=== PATIENT | female | born 1945 | race Caucasian/White ===

== ENCOUNTER → 2018-04-30 | Outpatient (CLI) | payer MEDICARE ==
[~2018-04-30] MED LIST: ATOR80 PO; Allegra-D 12 H1 EACH PO; Aspirin EC81 MG PO; CARV25 PO; CLOP75 PO; FLONASE ALLERG9.9 ML INH; LISI20 PO; PANT40 PO
[2018-05-01 09:34] LABS: Candida species (DNA Probe) Negative (NEGATIVE); G. vaginalis (DNA Probe) Positive (NEGATIVE); T. vaginalis (DNA Probe) Negative (NEGATIVE)
== END | disposition home or self-care (01) ==
LOC: LAB SHORT 10:44 → LAB 10:44
PROVIDERS: Obstetrics & Gynecology
DX: N76.0 Acute vaginitis (principal)
CPT/HCPCS: 87480; 87510; 87660

== ENCOUNTER → 2019-05-02 | Outpatient (CLI) | payer MEDICARE ==
[2019-05-03 11:55] LABS: Candida species (DNA Probe) Negative (NEGATIVE); G. vaginalis (DNA Probe) Positive (NEGATIVE); T. vaginalis (DNA Probe) Negative (NEGATIVE)
== END | disposition home or self-care (01) ==
LOC: LAB SHORT 15:30 → LAB 15:30
PROVIDERS: Obstetrics & Gynecology
DX: N76.0 Acute vaginitis (principal)
CPT/HCPCS: 87480; 87510; 87660

== ENCOUNTER → 2022-03-22 | Outpatient (CLI) | payer MEDICARE | END | disposition home or self-care (01) | LOC: LAB 14:30 → LAB SHORT 14:30 | DX: M99.05 Segmental and somatic dysfunction of pelvic region (principal) | CPT/HCPCS: 87077; 87086; 87186 ==

== ENCOUNTER 2024-12-26 20:44 | Inpatient (IN) | payer MEDICARE ==
[~2024-12-26] VITALS: Ht 149.9 cm; Wt 46.5 kg
[2024-12-26 21:10] LABS: BASOPHILS ABSOLUTE AUTO 0.05 K/mm3 (0.00-0.23); BASOPHILS PERCENT AUTO 1 % (0-2); EOSINOPHILS ABSOLUTE AUTO 0.09 K/mm3 (0.00-0.68); EOSINOPHILS PERCENT AUTO 2 % (0-6); Hematocrit 50.3 % (33.0-51.0); Hemoglobin 16.6 g/dL (11.5-16.0); IMMATURE GRAN ABSOLUTE AUTO 0.01 K/mm3 (0.00-0.10); IMMATURE GRAN PERCENT AUTO 0 % (0-1); LYMPHOCYTES ABSOLUTE AUTO 1.56 K/mm3 (0.84-5.20); LYMPHOCYTES PERCENT AUTO 31 % (21-46); MONOCYTES ABSOLUTE AUTO 0.50 K/mm3 (0.16-1.47); MONOCYTES PERCENT AUTO 10 % (4-13); Mean Corpuscular HGB Conc 33.0 g/dL (31.5-36.5); Mean Corpuscular Volume 88 fL (80-100); NEUTROPHILS ABSOLUTE AUTO 2.88 K/mm3 (1.96-9.15); NEUTROPHILS PERCENT AUTO 57 % (41-73); NRBC ABSOLUTE 0.00 K/mm3 (0.00-0.02); NRBC Auto 0.0 /100 WBC (0.0-0.2); Platelet Count 213 K/mm3 (150-400); RDW Coefficient Variation 14.2 % (11.7-14.2); RDW Standard Deviation 45.6 fL (35.1-46.3)
[2024-12-26 21:25] LABS: Anion Gap 11.0 mmol/L (3-11); Blood Urea Nitrogen 10.0 mg/dL (8-24); CO2, Blood 21.0 mmol/L (21-32); Calcium, Blood 9.0 mg/dL (8.5-10.1); Chloride, Blood 96.0 mmol/L (98-108); Creatinine, Blood 0.77 mg/dL (0.40-1.00); Ethanol (Alcohol), Blood, Med 191.0 mg/dL; Glucose, Blood 95.0 mg/dL (70-99); Potassium, Blood 4.2 mmol/L (3.5-5.5); Sodium, Blood 124.0 mmol/L (136-145)
[2024-12-26] MEDS ORDERED: NS 1,000 ML IV SCH (21:35)
[2024-12-26] MEDS ORDERED: LISI20 PO (23:40)
[2024-12-26] MEDS ORDERED: MONT10T PO (23:40)
[2024-12-26] MEDS ORDERED: DONE5 PO (23:40)
[2024-12-27] MEDS ORDERED: HydrALAZINE HCl 20 MG / ML 1ML Vial IV PRN (00:05)
[2024-12-27] MEDS ORDERED: HydrALAZINE HCl 20 MG / ML 1ML Vial ONE (00:29)
[2024-12-27 01:26] VITALS: BP 171/111
--- NOTE | 2024-12-27 01:30 | NUR ---
ARRIVAL TO SURGICAL UNIT ROOM 213 AT 0113. PT A/OX3, FORGETFUL, PT STEADY ON FEET YET IMPULSIVE AND OVERESTIMATING ABILITIES. PT ORIENTED TO UNIT AND POLICIES. DENIES IGNITION SOURCES. PT HYPERTENSIVE AND TACHY. WILL CALL PROVIDER FOR TELEMETRY ORDERS R/T VITALS. BED ALARM SET FOR SAFETY. REPORT FROM CLAIR SYKES RN REVEALED PT WAS REMOVING TELE CORDS, C-SPINE COLLAR, AND WAS RESTLESS PRIOR TO ARRIVAL TO FLOOR.
[2024-12-27 02:25] VITALS: BP 165/81
[2024-12-27 03:15] LABS: BASOPHILS ABSOLUTE AUTO 0.05 K/mm3 (0.00-0.23); BASOPHILS PERCENT AUTO 1 % (0-2); EOSINOPHILS ABSOLUTE AUTO 0.04 K/mm3 (0.00-0.68); EOSINOPHILS PERCENT AUTO 1 % (0-6); Hematocrit 49.5 % (33.0-51.0); Hemoglobin 16.6 g/dL (11.5-16.0); IMMATURE GRAN ABSOLUTE AUTO 0.02 K/mm3 (0.00-0.10); IMMATURE GRAN PERCENT AUTO 0 % (0-1); LYMPHOCYTES ABSOLUTE AUTO 0.92 K/mm3 (0.84-5.20); LYMPHOCYTES PERCENT AUTO 17 % (21-46); MONOCYTES ABSOLUTE AUTO 0.35 K/mm3 (0.16-1.47); MONOCYTES PERCENT AUTO 7 % (4-13); Mean Corpuscular HGB Conc 33.5 g/dL (31.5-36.5); Mean Corpuscular Volume 86 fL (80-100); NEUTROPHILS ABSOLUTE AUTO 3.97 K/mm3 (1.96-9.15); NEUTROPHILS PERCENT AUTO 74 % (41-73); NRBC ABSOLUTE 0.00 K/mm3 (0.00-0.02); NRBC Auto 0.0 /100 WBC (0.0-0.2); Platelet Count 218 K/mm3 (150-400); RDW Coefficient Variation 14.3 % (11.7-14.2); RDW Standard Deviation 45.3 fL (35.1-46.3)
--- NOTE | 2024-12-27 03:22 | NUR ---
TELEMETRY EVENT. AT 0208 THIS RN WAS NOTIFIED BY HAT LINING PASTER MIGEL MADSEN OF ST ELEVATION IN LEADS V AND MCL. THIS RN IMMEDIATLY WENT TO PT ROOM. PT ALERT/AWAKE AND DENIES SOB, CHEST PAIN OR PRESSURE. EKG AND VS OBTAINED. NOTIFIED PHARMACEUTICAL REPRESENTATIVE AND REVIEWED EKG WITH PCU PHARMACEUTICAL REPRESENTATIVE. NOTIFIED HOSPITALIST AND NEW ORDERS RECEIVED FOR TROPONIN LABS 1 X NOW AND REPEAT IN 2 HOURS.
[2024-12-27 03:34] LABS: Alanine Aminotransfer (ALT/SGP 26.0 U/L (12-78); Albumin, Blood 3.4 g/dL (3.4-5.0); Albumin/Globulin Ratio 1.0 (0.8-1.8); Anion Gap 10.0 mmol/L (3-11); Aspartate Aminotrans (AST/SGOT 32.0 U/L (12-37); Bilirubin, Total 0.9 mg/dL (0.1-1.0); Blood Urea Nitrogen 9.0 mg/dL (8-24); CO2, Blood 24.0 mmol/L (21-32); Calcium, Blood 8.2 mg/dL (8.5-10.1); Chloride, Blood 99.0 mmol/L (98-108); Creatinine, Blood 0.91 mg/dL (0.40-1.00); Globulin, Blood 3.3 g/dL (2.2-4.0); Glucose, Blood 87.0 mg/dL (70-99); Potassium, Blood 4.2 mmol/L (3.5-5.5); Sodium, Blood 129.0 mmol/L (136-145); Total Protein, Blood 6.7 g/dL (6.4-8.2)
[2024-12-27 05:04] VITALS: BP 177/89
[2024-12-27 07:15] VITALS: BP 179/94
--- NOTE | 2024-12-27 07:36 | NUR ---
SHIFT SUMMARY NOC. PT A/O X2-3. PT FORGETFUL AND REPEATS HERSELF. PT IMPULSIVE WITH GETTING OUT OF BED AND SET OFF BED ALARM MULTIPLE TIMES THIS SHIFT. PT VERBALIZED SHE HAD TO "GO TO THE BATHROOM". PT VOIDING URINE AND HAD A BM. PT DENIES PAIN OR HEADACHE THIS SHIFT DESPITE HEAD LACERATION. PT PLACED ON TELEMETRY AND SEE NOTE ON ST ELEVATION/TELE EVENT. PT MEDICATED WITH PRN FOR HTN X1 THIS SHIFT. PT IS A POOR HISTORIAN AND MED REQ IS NOT COMPLETE. REPORT GIVEN TO ONCOMING DAY SHIFT RN. CALL LIGHT IN REACH, PT NOT CALLING APPROPRIATELY.
[2024-12-27] MEDS ORDERED: Enoxaparin 40 MG/0.4 ML SYR SC SCH (09:00)
--- NOTE | 2024-12-27 13:57 | NUR ---
VERBAL ORDER DR. OLEARY TO ALSO RESUME PT'S HOME DOSE OF CARVEDILOL + FLONASE ON DISCHARGE MED REC.
--- NOTE | 2024-12-27 14:06 | NUR ---
IV DC'D INTACT. TELEMETRY DC'D. MESSAGE LEFT FOR SPOUSE REGARDING DISCHARGE.
--- NOTE | 2024-12-27 14:09 | NUR ---
TELE BOX RETURNED TO PCU.
[2024-12-27 14:25] VITALS: BP 162/82
--- NOTE | 2024-12-27 15:24 | NUR ---
DC'D HOME INTO SELF CARE. UNDERSTANDING OF DC INSTRUCT STATED BY SPOUSE AND PT.
== END 2024-12-27 15:15 | disposition home or self-care (01) | DRG 641 ==
LOC: ER 20:44 → MEDS 20:45 → SURS 20:45 → ER 20:45 → SURS 20:45 → MEDS 12-27 01:15 → SURS 12-27 01:30
PROVIDERS: Student in an Organized Health Care Education/Training Program; ADMIT Family Medicine
DX: E87.1 Hypo-osmolality and hyponatremia (principal); I10 Essential (primary) hypertension; E86.0 Dehydration; F03.90 Unspecified dementia, unspecified severity, without behavioral disturbance, psychotic disturbance, mood disturbance, and anxiety; Y90.6 Blood alcohol level of 120-199 mg/100 ml; E78.00 Pure hypercholesterolemia, unspecified; S01.01XA Laceration without foreign body of scalp, initial encounter; I44.7 Left bundle-branch block, unspecified; F10.129 Alcohol abuse with intoxication, unspecified; W19.XXXA Unspecified fall, initial encounter; Y92.59 Other trade areas as the place of occurrence of the external cause; Z71.41 Alcohol abuse counseling and surveillance of alcoholic; Z79.02 Long term (current) use of antithrombotics/antiplatelets; Z79.899 Other long term (current) drug therapy; Z95.820 Peripheral vascular angioplasty status with implants and grafts; Z87.891 Personal history of nicotine dependence
CPT/HCPCS: 36415; 70450; 72125; 80048; 80053; 80320; 83930; 84295; 84484; 85025; 90471; 90715; 93005; 93010; 96360; 96361; 96374; 99285-25; A9270; G0378; J0360; J1650; J7030; L0160

== ENCOUNTER 2025-04-04 14:07 | Observation (INO) | payer MEDICARE ==
[~2025-04-04] VITALS: Ht 157.5 cm; Wt 49.9 kg
[~2025-04-04 14:07] MED LIST changes: +DONE5 PO; +MONT10T PO
[2025-04-04 14:29] LABS: BASOPHILS ABSOLUTE AUTO 0.03 K/mm3 (0.00-0.23); BASOPHILS PERCENT AUTO 1 % (0-2); EOSINOPHILS ABSOLUTE AUTO 0.04 K/mm3 (0.00-0.68); EOSINOPHILS PERCENT AUTO 1 % (0-6); Hematocrit 43.4 % (33.0-51.0); Hemoglobin 14.7 g/dL (11.5-16.0); IMMATURE GRAN ABSOLUTE AUTO 0.02 K/mm3 (0.00-0.10); IMMATURE GRAN PERCENT AUTO 0 % (0-1); LYMPHOCYTES ABSOLUTE AUTO 0.52 K/mm3 (0.84-5.20); LYMPHOCYTES PERCENT AUTO 9 % (21-46); MONOCYTES ABSOLUTE AUTO 0.47 K/mm3 (0.16-1.47); MONOCYTES PERCENT AUTO 8 % (4-13); Mean Corpuscular HGB Conc 33.9 g/dL (31.5-36.5); Mean Corpuscular Volume 88 fL (80-100); NEUTROPHILS ABSOLUTE AUTO 4.60 K/mm3 (1.96-9.15); NEUTROPHILS PERCENT AUTO 81 % (41-73); NRBC ABSOLUTE 0.00 K/mm3 (0.00-0.02); NRBC Auto 0.0 /100 WBC (0.0-0.2); Platelet Count 203 K/mm3 (150-400); RDW Coefficient Variation 14.4 % (11.7-14.2); RDW Standard Deviation 46.1 fL (35.1-46.3)
[2025-04-04 14:53] LABS: Alanine Aminotransfer (ALT/SGP 36.0 U/L (12-78); Albumin, Blood 3.1 g/dL (3.4-5.0); Albumin/Globulin Ratio 1.0 (0.8-1.8); Anion Gap 10.0 mmol/L (3-11); Aspartate Aminotrans (AST/SGOT 32.0 U/L (12-37); Bilirubin, Total 1.6 mg/dL (0.1-1.0); Blood Urea Nitrogen 23.0 mg/dL (8-24); CO2, Blood 25.0 mmol/L (21-32); Calcium, Blood 9.1 mg/dL (8.5-10.1); Chloride, Blood 96.0 mmol/L (98-108); Creatinine, Blood 0.73 mg/dL (0.40-1.00); Globulin, Blood 3.1 g/dL (2.2-4.0); Glucose, Blood 127.0 mg/dL (70-99); Potassium, Blood 4.0 mmol/L (3.5-5.5); Sodium, Blood 127.0 mmol/L (136-145); Total Protein, Blood 6.2 g/dL (6.4-8.2)
[2025-04-04] MEDS ORDERED: FLU VACC TS2025(65UP)/MF59C/PF 45 MCG/0.5 ML SYRINGE IM SCH (18:00)
[2025-04-04] MEDS ORDERED: Furosemide 10 MG / ML 2ML Vial IV SCH (19:00)
[2025-04-04 20:46] VITALS: BP 149/97
[2025-04-05 00:38] VITALS: BP 152/93
--- NOTE | 2025-04-05 04:18 | NUR ---
SHIFT SUMMARY: PT ADMITTED THIS SHIFT. PT IS A&O TO SELF, FAMILY. PT REPEATEDLY ATTEMPTS OF EXIT BED WITHOUT ASSISTANCE. PT REQUIRES SBA TO BSC. VSS. CARDIAC TELEMETRY, NSR 90s. 1+ EDEMA NOTED TO FEET. FAMILY STATED TO NURSE THAT PT HAS NOT BEEN EATING WELL AT HOME, AND OFTEN REFUSES BATHS/SHOWERS. PT PREFERS TO REMAIN IN FECES SOILED CLOTHING. PARTIAL BED BATH GIVEN, AND CHANGED INTO CLEAN CLOTHING. BED ALARM IS ON. BED IS LOW AND LOCKED. CALL LIGHT IS WITHIN REACH.
[2025-04-05 06:45] LABS: BASOPHILS ABSOLUTE AUTO 0.03 K/mm3 (0.00-0.23); BASOPHILS PERCENT AUTO 0 % (0-2); EOSINOPHILS ABSOLUTE AUTO 0.06 K/mm3 (0.00-0.68); EOSINOPHILS PERCENT AUTO 1 % (0-6); Hematocrit 41.2 % (33.0-51.0); Hemoglobin 14.4 g/dL (11.5-16.0); IMMATURE GRAN ABSOLUTE AUTO 0.02 K/mm3 (0.00-0.10); IMMATURE GRAN PERCENT AUTO 0 % (0-1); LYMPHOCYTES ABSOLUTE AUTO 0.58 K/mm3 (0.84-5.20); LYMPHOCYTES PERCENT AUTO 8 % (21-46); MONOCYTES ABSOLUTE AUTO 0.46 K/mm3 (0.16-1.47); MONOCYTES PERCENT AUTO 7 % (4-13); Mean Corpuscular HGB Conc 35.0 g/dL (31.5-36.5); Mean Corpuscular Volume 86 fL (80-100); NEUTROPHILS ABSOLUTE AUTO 5.92 K/mm3 (1.96-9.15); NEUTROPHILS PERCENT AUTO 84 % (41-73); NRBC ABSOLUTE 0.00 K/mm3 (0.00-0.02); NRBC Auto 0.0 /100 WBC (0.0-0.2); Platelet Count 220 K/mm3 (150-400); RDW Coefficient Variation 14.3 % (11.7-14.2); RDW Standard Deviation 44.5 fL (35.1-46.3)
[2025-04-05 07:20] LABS: Alanine Aminotransfer (ALT/SGP 27.0 U/L (12-78); Albumin, Blood 2.9 g/dL (3.4-5.0); Albumin/Globulin Ratio 1.0 (0.8-1.8); Anion Gap 12.0 mmol/L (3-11); Aspartate Aminotrans (AST/SGOT 21.0 U/L (12-37); Bilirubin, Total 2.0 mg/dL (0.1-1.0); Blood Urea Nitrogen 21.0 mg/dL (8-24); CO2, Blood 24.0 mmol/L (21-32); Calcium, Blood 9.0 mg/dL (8.5-10.1); Chloride, Blood 96.0 mmol/L (98-108); Creatinine, Blood 0.78 mg/dL (0.40-1.00); Globulin, Blood 3.0 g/dL (2.2-4.0); Glucose, Blood 98.0 mg/dL (70-99); Magnesium, Blood 1.7 mg/dL (1.6-2.4); Potassium, Blood 3.5 mmol/L (3.5-5.5); Sodium, Blood 128.0 mmol/L (136-145); Total Protein, Blood 5.9 g/dL (6.4-8.2)
[2025-04-05 07:28] VITALS: BP 174/98
[2025-04-05] MEDS ORDERED: Enoxaparin 40 MG/0.4 ML SYR SC SCH (09:00)
--- NOTE | 2025-04-05 09:51 | NUR ---
04/05 AT [address] LANG OF PTS SODIUM OF 128 AND POTASSIUM OF 3.5. PER DR[address] LANG IV LASIX HAS BEEN DISCONTINUED.
[2025-04-05 11:31] VITALS: BP 151/89
[2025-04-05 19:46] VITALS: BP 118/85
[2025-04-06 04:47] LABS: Hematocrit 41.8 % (33.0-51.0); Hemoglobin 14.2 g/dL (11.5-16.0); Mean Corpuscular HGB Conc 34.0 g/dL (31.5-36.5); Mean Corpuscular Volume 88 fL (80-100); NRBC ABSOLUTE 0.00 K/mm3 (0.00-0.02); NRBC Auto 0.0 /100 WBC (0.0-0.2); Platelet Count 230 K/mm3 (150-400); RDW Coefficient Variation 14.4 % (11.7-14.2); RDW Standard Deviation 45.7 fL (35.1-46.3)
[2025-04-06 05:08] LABS: Albumin, Blood 2.8 g/dL (3.4-5.0); Anion Gap 10 mmol/L (3-11); Blood Urea Nitrogen 24 mg/dL (8-24); CO2, Blood 24 mmol/L (21-32); Calcium, Blood 8.8 mg/dL (8.5-10.1); Chloride, Blood 97 mmol/L (98-108); Creatinine, Blood 0.77 mg/dL (0.40-1.00); Glucose, Blood 88 mg/dL (70-99); Magnesium, Blood 1.8 mg/dL (1.6-2.4); Phosphorus, Blood 3.6 mg/dL (2.5-4.9); Potassium, Blood 3.3 mmol/L (3.5-5.5); Sodium, Blood 128 mmol/L (136-145)
--- NOTE | 2025-04-06 06:04 | NUR ---
SHIFT SUMMARY PATIENT A/O X2-3 UNABLE TO TELL WHERE SHE IS AND BECAME VERY CONFUSED AND AGGITATED AT APPROX 0400 DUE TO GETTING WOKEN UP FOR LABS AND VITAL SIGNS. PT CALMED AFTER ABOUT AN HOUR AND THIS RN WAS ABLE TO GET HER BACK INTO BED AT APPROX 0515 AND PT HAS BEEN RESTING SINCE. VITAL SIGNS HAVE REMAINED STABLE. BED IN LOWEST POSITION, CALL LIGHT IN REACH. BED ALARM ON FOR SAFETY, WILL REPORT TO DAY SHIFT RN.
[2025-04-06 07:27] VITALS: BP 159/87
[2025-04-06] MEDS ORDERED: POTCHL20ER PO (09:32)
[2025-04-06] MEDS ORDERED: FURO20 (09:32)
[2025-04-06] MEDS ORDERED: JARDIANCE10 MG PO (09:32)
--- NOTE | 2025-04-06 11:49 | NUR ---
PT DISCHARGED TODAY. THIS RN WENT OVER DISCHARGE INSTRUCTIONS ABOUT F/U APPOINTMENTS AND SAFETY PRECAUTIONS TO TAKE WITH NEWLY PRESCRIBED MEDICATIONS WITH BOTH THE PT AND HER , BOTH VERBALIZED UNDERSTANDING. PT TAKEN OUT OF HOSPITAL VIA W/C BY ALDO.
== END 2025-04-06 10:47 | disposition home health service (06) ==
LOC: ER 14:07 → MEDS 14:08 → ERHOLD 14:08 → MEDS 20:41 → ENPENDDIS 04-06 09:05 → MEDS 04-06 10:47
PROVIDERS: Emergency Medicine; Internal Medicine; ADMIT Student in an Organized Health Care Education/Training Program
DX: I11.0 Hypertensive heart disease with heart failure (principal); I50.31 Acute diastolic (congestive) heart failure; I27.21 Secondary pulmonary arterial hypertension; I08.3 Combined rheumatic disorders of mitral, aortic and tricuspid valves; I44.7 Left bundle-branch block, unspecified; R60.0 Localized edema; E78.00 Pure hypercholesterolemia, unspecified; E87.1 Hypo-osmolality and hyponatremia; J90 Pleural effusion, not elsewhere classified; J98.11 Atelectasis; F03.90 Unspecified dementia, unspecified severity, without behavioral disturbance, psychotic disturbance, mood disturbance, and anxiety; Z79.51 Long term (current) use of inhaled steroids; Z79.899 Other long term (current) drug therapy; Z87.891 Personal history of nicotine dependence
CPT/HCPCS: 36415; 71045; 80053; 80069; 83735; 83880; 84484; 85025; 85027; 93005; 93010; 93306; 96372; 96374; 97116; 97161; 99285-25; A6590; A9270; G0378; J1650; J1938

== ENCOUNTER 2025-04-23 06:25 | Emergency (ER) | payer MEDICARE ==
[~2025-04-23] VITALS: Ht 157.5 cm; Wt 68.0 kg
[~2025-04-23 06:25] MED LIST changes: +FURO20; +JARDIANCE10 MG PO; +POTCHL20ER PO
[2025-04-23 08:56] LABS: Source, Urine Clean Catch
[2025-04-23 08:57] LABS: BASOPHILS ABSOLUTE AUTO 0.02 K/mm3 (0.00-0.23); BASOPHILS PERCENT AUTO 0 % (0-2); EOSINOPHILS ABSOLUTE AUTO 0.04 K/mm3 (0.00-0.68); EOSINOPHILS PERCENT AUTO 1 % (0-6); Hematocrit 37.7 % (33.0-51.0); Hemoglobin 12.8 g/dL (11.5-16.0); IMMATURE GRAN ABSOLUTE AUTO 0.02 K/mm3 (0.00-0.10); IMMATURE GRAN PERCENT AUTO 0 % (0-1); LYMPHOCYTES ABSOLUTE AUTO 0.64 K/mm3 (0.84-5.20); LYMPHOCYTES PERCENT AUTO 9 % (21-46); MONOCYTES ABSOLUTE AUTO 0.44 K/mm3 (0.16-1.47); MONOCYTES PERCENT AUTO 6 % (4-13); Mean Corpuscular HGB Conc 34.0 g/dL (31.5-36.5); Mean Corpuscular Volume 87 fL (80-100); NEUTROPHILS ABSOLUTE AUTO 6.23 K/mm3 (1.96-9.15); NEUTROPHILS PERCENT AUTO 84 % (41-73); NRBC ABSOLUTE 0.00 K/mm3 (0.00-0.02); NRBC Auto 0.0 /100 WBC (0.0-0.2); Platelet Count 275 K/mm3 (150-400); RDW Coefficient Variation 13.2 % (11.7-14.2); RDW Standard Deviation 41.8 fL (35.1-46.3)
[2025-04-23 09:09] LABS: Bilirubin, Urine Neg (Neg); Color, Urine Yellow (P-Yellow); Glucose Qualitative, Urine 2+ (Neg); Ketones, Urine Neg (Neg); Leukocyte Esterase, Urine 2+ (Neg); Protein, Urine 1+ (Neg); Specific Gravity, Urine 1.015 (1.003-1.022); Urobilinogen, Urine NORM (Normal)
[2025-04-23 09:15] LABS: Alanine Aminotransfer (ALT/SGP 18.0 U/L (12-78); Albumin, Blood 3.1 g/dL (3.4-5.0); Albumin/Globulin Ratio 0.8 (0.8-1.8); Anion Gap 13.0 mmol/L (3-11); Aspartate Aminotrans (AST/SGOT 15.0 U/L (12-37); Bilirubin, Total 1.2 mg/dL (0.1-1.0); Blood Urea Nitrogen 52.0 mg/dL (8-24); CO2, Blood 21.0 mmol/L (21-32); Calcium, Blood 9.5 mg/dL (8.5-10.1); Chloride, Blood 100.0 mmol/L (98-108); Creatinine, Blood 1.19 mg/dL (0.40-1.00); Globulin, Blood 3.7 g/dL (2.2-4.0); Glucose, Blood 105.0 mg/dL (70-99); Potassium, Blood 4.3 mmol/L (3.5-5.5); Sodium, Blood 130.0 mmol/L (136-145); Total Protein, Blood 6.8 g/dL (6.4-8.2)
[2025-04-23 09:16] LABS: White Blood Cells, Urine 25-50 /hpf (0-5)
[2025-04-23 09:17] LABS: Red Blood Cells, Urine 0-2 /hpf (0-2)
[2025-04-23] MEDS ORDERED: CefTRIAXone Sodium 1,000 MG in NS 50 ML IV ONE (09:35)
[2025-04-23] MEDS ORDERED: CEPH500 PO (11:52)
[2025-04-23 12:06] VITALS: BP 114/54
== END 2025-04-23 12:10 | disposition home or self-care (01) ==
LOC: ER 06:25
PROVIDERS: Emergency Medicine
DX: N39.0 Urinary tract infection, site not specified (principal); F03.90 Unspecified dementia, unspecified severity, without behavioral disturbance, psychotic disturbance, mood disturbance, and anxiety
CPT/HCPCS: 80053; 81001; 84484; 85025; 87077; 87086; 87186; 93005; 93010; 96365; 99284-25; A9270; J0696